=== PATIENT | female | born 1970 | race African-American/Black ===

== ENCOUNTER 2016-10-26 11:10 | Emergency (ER) ==
--- NOTE | 2016-10-26 11:36 | PROVIDER DOCUMENTATION ---
HPI-Rash/Wound/ReCheck <Sari Taylor - Last Filed: 10/26/16 11:51> - General Source: patient - History of Present Illness-Dermatology Location: reports: feet Quality: reports: painful Severity: reports: mild Onset/Duration: reports: 3 days ago Timing: reports: still present Context/Associated Symptoms: reports: burn Identifiable cause?: Yes Locality of Occurance: Home Similar Symptoms Previously?: No Recently seen or treated by another doctor?: No <Jyotsna Babb - Last Filed: 10/26/16 12:13> - General Chief Complaint: Work Related Injury Stated Complaint: LEFT LEG BURN Time Seen by Provider: 10/26/16 11:29 Allergies/Adverse Reactions: Allergies Allergy/AdvReac Type Severity Reaction Status Date / Time No Known Allergies Allergy Verified 10/26/16 11:34 Home Medications: Home Medication List Medication Instructions Recorded Confirmed Last Taken Type Sertraline [Zoloft] 50 mg PO DAILY 08/06/15 10/26/16 10/25/16 History Amlodipine Besylate [Norvasc] 10 mg PO DAILY 03/06/16 10/26/16 10/25/16 History Omeprazole [Prilosec] 20 mg PO DAILY@0700 #20 capsule 03/06/16 10/26/16 Rx Amlodipine Besylate [Norvasc] 10 mg PO DAILY #30 tablet 09/23/16 10/26/16 Rx Diphenoxylate/Atropine [Lomotil] 1 each PO 4XDAY PRN PRN #20 tablet 09/23/1604/0610/25/16 Rx Promethazine [Phenergan] 1 - 2 tab PO Q6H PRN PRN #18 tablet 09/23/16 10/26/16 10/25/16 Rx - History of Present Illness-Dermatology Nature of Presenting Problem: Pt presents to er with cc of left dorsal foot blister since monday status post grease burn at [employer] on monday. Reports minimal discomfort. Emma clark,mu,fCedric (Jyotsna Babb) Review of Systems - Adult - REVIEW OF SYSTEMS - ADULT Constitutional: denies: chills, fever, fatique Eyes: reports: no symptoms reported Ears, Nose, Mouth & Throat: reports: no symptoms reported Cardiovascular: reports: no symptoms reported Respiratory: denies: chronic cough, excessive sputum production, hemoptysis Gastrointestinal: denies: abdominal pain, diarrhea, nausea, vomiting Genitourinary: reports: no symptoms reported Musculoskeletal: reports: no symptoms reported Integumentary: reports: see HPI. denies: itching, mole changes, nail changes, skin thickening Neurological: reports: no symptoms reported Psychiatric: reports: no symptoms reported Endocrine: reports: no symptoms reported Hematologic/Lymphatic: reports: no symptoms reported Allergic/Immunologic: reports: no symptoms reported All Other Systems: Reviewed and Negative <Jyotsna Babb - Last Filed: 10/26/16 12:13> Past History - Adult - PAST MEDICAL HISTORY-ADULT Major Childhood Illnesses: reports: denies history Cardiovascular: reports: HTN, hyperlipidemia Respiratory: reports: denies history Genitourinary: reports: denies history Musculoskeletal: reports: arthritis Neurological: reports: denies history Psychiatric: reports: denies history Endocrine/Immune: reports: Diabetes (borderline) - PRIOR SURGERIES/PROCEDURES Surgical/Procedure History: reports: none - IMMUNIZATION STATUS Childhood Immunizations: See Nurse Assessment Flu Vaccine: See Nurse Assessment - FAMILY HISTORY Family History: reviewed, not pertinent <Sari Taylor - Last Filed: 10/26/16 11:51> - PAST MEDICAL HISTORY-ADULT Review of Records: reports: Nursing Assessment Review Major Childhood Illnesses: reports: denies history Cardiovascular: reports: HTN Endocrine/Immune: reports: Diabetes - IMMUNIZATION STATUS Childhood Immunizations: See Nurse Assessment Flu Vaccine: See Nurse Assessment - SOCIAL HISTORY Smoking: denies Substance Use: alcohol <Jyotsna Babb - Last Filed: 10/26/16 12:13> Physical Exam-General - PHYSICAL EXAM-ADULT Initial Vital Signs Reviewed: Yes - CONSTITUTIONAL General Appearance: appears well, alert, no apparent distress - EYES Eyes: PERRL/EOMI - HEAD, EARS, NOSE, MOUTH & THROAT HENMT: moist mucous membranes, normal ENT inspection, TMs normal, pharynx normal - NECK Neck: non-tender, full range of motion, supple, normal inspection - RESPIRATORY Respiratory: chest non-tender, lungs clear, normal breath sounds, no pleuratic chest pain, no respiratory distress, no accessory muscle use - CARDIOVASCULAR Cardiovascular: regular rate, rhythm - GASTROINTESTINAL (ABDOMEN) Abdominal Exam: normal bowel sounds, non tender, soft, no organomegaly, no pulsatile mass - MUSCULOSKELETAL Extremity: normal range of motion, non-tender, other (left dorsal aspect of foot 5by 3cm blister no drainage no swelling) - SKIN Integumentary: normal color, normal turgor, warm/dry - PSYCHIATRIC Psych/Mental Status: normal mood/affect, normal thought content, normal thought process, oriented x 3 <Jyotsna Babb - Last Filed: 10/26/16 12:13> Progress <Sari Taylor - Last Filed: 10/26/16 11:51> <Jyotsna Babb - Last Filed: 10/26/16 12:13> - PLAN OF CARE/RESULTS Progress/Plan/Lab Results: Orders Category Date Time Status Wound Care DIRECTED Care 10/26/16 11:32 Active [facility] URINE DRUG SCREEN Stat Lab 10/26/16 11:59 Ordered Vital Signs - 24 hr 10/26/16 10/26/16 11:24 11:55 Temperature 98.2 F Pulse Rate 83 76 Respiratory 18 Rate Blood Pressure 193/104 184/114 O2 Sat by Pulse 100 Oximetry (Jyotsna Babb) Procedures - INCISION & DRAINAGE Site: L foot Abscess Type: Other (blister) Blade Size: needle lancet Packing placed?: No Sterile Dressing Applied?: Yes (mepilex) Drainage: Large Amount Procedure Comment: Pt tolerated well <Sari Taylor - Last Filed: 10/26/16 11:51> Departure - Departure Time of Disposition Order: 11:34 Certified Medical Emergency: Emergent <Brianda Taylorherine ChelseaCedric - Last Filed: 10/26/16 11:51> <Jyotsna Babb - Last Filed: 10/26/16 12:13> - Departure DIAGNOSIS: Second degree burn injury Disposition: HOME 01 Condition: Good Additional Instructions: Keep dressing on for 3 days. Follow up with [facility] or return to the ED for recheck of burn after that time. Return if symptoms get worse. ED Follow Up Instructions: You have been treated by a care provider in the Emergency Department. These instructions are being provided to you so you can have an understanding of how to care for yourself upon discharge. Upon discharge from the Emergency Department, you are responsible for making arrangements for follow-up care by a physician of your choice. Take all prescribed medications as directed. Return to the Emergency Department immediately for any new or worsening symptoms. You may call the Physician Referral phone number at [phone] to obtain a list of Physicians who are taking new patients. Referrals: Jw Kirk [Primary Care Provider] - Forms: Work Excuse Instructions: Burn Care, [id number] Attestation - Physician/ DARON Attestation Patient care was provided by Advanced Practice Provider:: Yes Advanced Practice Provider:: Sari Taylor Advanced Practice Provider documentation review:: The Mid-level provider documentation, treatment plan and medical decision making was reviewed by the physician who agrees with all treatment and medical decision making by the MLP. <Sari Taylor - Last Filed: 10/26/16 11:51> - Scribe Verification/Attestation Scribe:: Jyotsna Babb Acting as Scribe for:: Sari Taylor Scribe documention review:: This chart was documented by a scribe and accurately reflects the service the provider performed and the decisions made by the provider. <Jyotsna Babb - Last Filed: 10/26/16 12:13> Physician Attestation
[2016-10-26 11:55] VITALS: BP 184/114
== END 2016-10-26 12:00 | disposition home or self-care (01) ==
LOC: ED 11:10
DX: T25.222A Burn of second degree of left foot, initial encounter (principal); X10.2XXA Contact with fats and cooking oils, initial encounter; Z79.899 Other long term (current) drug therapy

== ENCOUNTER 2016-11-04 20:02 | Emergency (ER) ==
[2016-11-04] MEDS ORDERED: ROCEPHIN IM ONE (21:21)
[2016-11-04] MEDS ORDERED: XYLOCAINE-MPF 1% INJ ONE (21:21)
--- NOTE | 2016-11-04 21:23 | PROVIDER DOCUMENTATION ---
HPI-Rash/Wound/ReCheck - General Chief Complaint: Extremity Pain Stated Complaint: FOOT PAIN Time Seen by Provider: 11/04/16 21:19 Source: patient Allergies/Adverse Reactions: Allergies Allergy/AdvReac Type Severity Reaction Status Date / Time No Known Allergies Allergy Verified 10/26/16 11:34 Home Medications: Home Medication List Medication Instructions Recorded Confirmed Last Taken Type Sertraline [Zoloft] 50 mg PO DAILY 08/06/15 11/04/16 10/25/16 History Omeprazole [Prilosec] 20 mg PO DAILY@0700 #20 capsule 03/06/16 11/04/16 Rx Amlodipine Besylate [Norvasc] 10 mg PO DAILY #30 tablet 09/23/16 11/04/16 Rx Diphenoxylate/Atropine [Lomotil] 1 each PO 4XDAY PRN PRN #20 tablet 09/23/1610/25/16 Rx Promethazine [Phenergan] 1 - 2 tab PO Q6H PRN PRN #18 tablet 09/23/16 11/04/16 10/25/16 Rx Amlodipine Besylate [Norvasc] 10 mg PO DAILY #30 tablet 11/04/16 Unknown Rx Cephalexin [Keflex] 500 mg PO BID #14 capsule 11/04/16 Unknown Rx Sulfamethoxazole/Trimethoprim 1 each PO BID #14 tablet 11/04/16 Unknown Rx [Bactrim Ds Tablet] - History of Present Illness-Dermatology Nature of Presenting Problem: 46 y/o BF c/o pain and wound to L medial ankle x 9 days. Pt was seen here for burn x 12 days prior and was given mepilex dressing to the area of 2nd degree burn with instructions to come back for recheck and dressing change in 3-5 days. Pt states it was looking better, so she did not come back. States that over last 5 days wound has been draining white purulence and has had pain 5/10. Denies any other sxs. Pt states she is out of her BP meds; unsure of when she took medications last. Review of Systems - Adult - REVIEW OF SYSTEMS - ADULT Constitutional: reports: no symptoms reported. denies: chills, fever Eyes: reports: no symptoms reported. denies: blurred vision, double vision Ears, Nose, Mouth & Throat: reports: no symptoms reported. denies: ear pain, nose pain Cardiovascular: reports: no symptoms reported. denies: chest pain, palpitations Respiratory: reports: no symptoms reported. denies: dyspnea on exertion, shortness of breath Gastrointestinal: reports: no symptoms reported. denies: nausea, vomiting Genitourinary: reports: no symptoms reported. denies: dysuria, frequency Musculoskeletal: reports: no symptoms reported. denies: joint pain, joint swelling Integumentary: reports: see HPI, other. denies: nail changes, rash Neurological: reports: no symptoms reported. denies: numbness, paresthesia Psychiatric: reports: no symptoms reported Endocrine: reports: no symptoms reported. denies: cold intolerance, heat intolerance Hematologic/Lymphatic: reports: no symptoms reported. denies: easy bruising, prolonged bleeding Allergic/Immunologic: reports: no symptoms reported All Other Systems: Reviewed and Negative Past History - Adult - PAST MEDICAL HISTORY-ADULT Review of Records: reports: Nursing Assessment Review, Medications Reviewed Major Childhood Illnesses: reports: denies history Cardiovascular: reports: HTN Respiratory: reports: denies history Genitourinary: reports: denies history Musculoskeletal: reports: arthritis Neurological: reports: denies history Psychiatric: reports: denies history Endocrine/Immune: reports: Diabetes - PRIOR SURGERIES/PROCEDURES Surgical/Procedure History: reports: none - IMMUNIZATION STATUS Childhood Immunizations: See Nurse Assessment Flu Vaccine: See Nurse Assessment - FAMILY HISTORY Family History: reviewed, not pertinent - SOCIAL HISTORY Smoking: denies Physical Exam-General - PHYSICAL EXAM-ADULT Initial Vital Signs Reviewed: Yes - CONSTITUTIONAL General Appearance: alert, mild distress - EYES Eyes: pink conjunctivae - HEAD, EARS, NOSE, MOUTH & THROAT HENMT: normocephalic/atraumatic - NECK Neck: normal inspection - RESPIRATORY Respiratory: no respiratory distress - CARDIOVASCULAR Cardiovascular: normal peripheral pulses, regular rate, rhythm - MUSCULOSKELETAL Back Exam: normal inspection Extremity: normal gait, normal capillary refill. negative: abnormal NV exam, pulse deficit Peripheral Pulses: dorsalis-pedis (R): 1+, dorsalis-pedis (L): 1+ - SKIN Integumentary: normal color, normal turgor, warm/dry, other (area of redness secondary to healing burn 3x5 cm to medial L ankle; purulence noted to the area. ) - NEUROLOGIC Neurologic: negative: aphasia, motor weakness, sensory deficit - PSYCHIATRIC Psych/Mental Status: normal mood/affect, normal thought content, normal thought process, oriented x 3 Progress - PLAN OF CARE/RESULTS Progress/Plan/Lab Results: Orders Category Date Time Status Wound Care DIRECTED Care 11/04/16 22:07 Active ANKLE COMPLETE LEFT [RAD] Stat Exams 11/04/16 21:21 Completed ABSCESS CULTURE INC GRAM STAIN [RM] Routine Lab 11/04/16 22:19 Results CefTRIAXONE [Rocephin] Med 11/04/16 21:21 Discontinued 1 gm IM NOW ONE Lidocaine 1% Pf [Xylocaine-Mpf 1%] Med 11/04/16 21:21 Discontinued 5 ml INJ NOW ONE Vital Signs Temp Pulse Resp BP Pulse Ox 11/04/16 22:28 97.8 F 68 18 194/106 99 11/04/16 20:29 99.1 F 75 18 180/107 100 No Known Allergies Allergy (Verified 10/26/16 11:34) Sertraline [Zoloft] 50 mg PO DAILY 08/06/15 Omeprazole [Prilosec] 20 mg PO DAILY@0700 #20 capsule 03/06/16 Amlodipine Besylate [Norvasc] 10 mg PO DAILY #30 tablet 09/23/16 Diphenoxylate/Atropine [Lomotil] 1 each PO 4XDAY PRN PRN #20 tablet 09/23/16 Promethazine [Phenergan] 1 - 2 tab PO Q6H PRN PRN #18 tablet 09/23/16 Amlodipine Besylate [Norvasc] 10 mg PO DAILY #30 tablet 11/04/16 Cephalexin [Keflex] 500 mg PO BID #14 capsule 11/04/16 Sulfamethoxazole/Trimethoprim [Bactrim Ds Tablet] 1 each PO BID #14 tablet 11/04 TYPE 2 DIABETES MELLITUS WITHOUT COMPLICATIONS (11/04/16) ESSENTIAL (PRIMARY) HYPERTENSION (11/04/16) OTH LOCAL INFECTIONS OF THE SKIN AND SUBCUTANEOUS TISSUE (11/04/16) UNSPECIFIED OSTEOARTHRITIS, UNSPECIFIED SITE (11/04/16) PAIN IN LEFT ANKLE AND JOINTS OF LEFT FOOT (11/04/16) BURN OF SECOND DEGREE OF LEFT ANKLE, SEQUELA (11/04/16) 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 Rogers at bedside and agrees with dx and tx plan and d/c home. Discussed with pt. - XRAY 1 XRAY: Left XRAY Study: Ankle XRAY Interpretation: No evidence of bony infection Departure - Departure Time of Disposition Order: 22:06 DIAGNOSIS: Second degree burn injury, Infected wound Hypertension Qualifiers: Hypertension type: essential hypertension Qualified Code(s): I10 - Essential ( primary) hypertension Disposition: HOME 01 Certified Medical Emergency: Emergent Condition: Stable Additional Instructions: Return in 3-5 days for wound recheck. Take medications as directed. RICE area as needed. ED Follow Up Instructions: You have been treated by a care provider in the Emergency Department. These instructions are being provided to you so you can have an understanding of how to care for yourself upon discharge. Upon discharge from the Emergency Department, you are responsible for making arrangements for follow-up care by a physician of your choice. Take all prescribed medications as directed. Return to the Emergency Department immediately for any new or worsening symptoms. You may call the Physician Referral phone number at [phone] to obtain a list of Physicians who are taking new patients. Prescriptions: Sulfamethoxazole/Trimethoprim [Bactrim Ds Tablet] 1 each PO BID #14 tablet Cephalexin [Keflex] 500 mg PO BID #14 capsule Amlodipine Besylate [Norvasc] 10 mg PO DAILY #30 tablet Referrals: Jw Kirk [Primary Care Provider] - Forms: Return to School/Parent Work Instructions: Wound Infection, [id number], Hypertension, [id number], Cephalexin tablets or capsules, Amlodipine tablets, Sulfamethoxazole; Trimethoprim, [id number] tablets Attestation - Physician/ DARON Attestation Patient care was provided by Advanced Practice Provider:: Yes Advanced Practice Provider:: Sari Taylor Advanced Practice Provider documentation review:: The Mid-level provider documentation, treatment plan and medical decision making was reviewed by the physician who agrees with all treatment and medical decision making by the MLP.
[2016-11-04 22:30] VITALS: BP 194/106
--- NOTE | 2016-11-04 23:22 | Diag Imaging Result Document ---
PROCEDURE NAME: ANKLE COMPLETE LEFT - 11/04/2016 PLAIN RADIOGRAPH THE LEFT ANKLE 3 VIEWS: COMPARISON: None available. FINDINGS: There is a small undersurface calcaneal osteophyte. There is soft tissue edema at the medial aspect of the ankle. No underlying bony erosion is identified to indicate osteomyelitis by plain radiograph at this time. There is no discrete fracture, dislocation, or intrinsic osseous lesion, otherwise. IMPRESSION: Soft tissue edema at the medial aspect of the ankle. No definite acute osseous abnormality by plain radiograph.
== END 2016-11-04 22:32 | disposition home or self-care (01) ==
LOC: P.ED 20:02
DX: T25.212S Burn of second degree of left ankle, sequela (principal); L08.89 Other specified local infections of the skin and subcutaneous tissue; I10 Essential (primary) hypertension; M25.572 Pain in left ankle and joints of left foot; M19.90 Unspecified osteoarthritis, unspecified site; E11.9 Type 2 diabetes mellitus without complications; Z79.899 Other long term (current) drug therapy
CPT/HCPCS: 87070; 87077; 87186; 96372; J0696